=== PATIENT | female | born 1995 | race Caucasian/White ===

== ENCOUNTER 2018-08-22 22:19 | Emergency (ER) | payer OTHER ==
[~2018-08-22] VITALS: Ht 160 cm; Wt 84.4 kg
[2018-08-23 00:05] VITALS: BP 125/61
== END 2018-08-23 00:05 | disposition home or self-care (01) ==
LOC: ED 22:19
DX: J02.9 Acute pharyngitis, unspecified (principal); H66.92 Otitis media, unspecified, left ear

== ENCOUNTER 2019-03-20 17:26 | Emergency (ER) | payer MEDICAID ==
[~2019-03-20] VITALS: Ht 162.6 cm; Wt 85.7 kg
[2019-03-20 17:40] VITALS: Ht 162.6 cm; Wt 85.7 kg
[2019-03-20 19:13] VITALS: BP 118/67
== END 2019-03-20 19:13 | disposition home or self-care (01) ==
LOC: ED 17:26
DX: O26.891 Other specified pregnancy related conditions, first trimester (principal); R19.7 Diarrhea, unspecified; Z3A.01 Less than 8 weeks gestation of pregnancy

== ENCOUNTER 2019-03-25 15:35 | Emergency (ER) | payer MEDICAID ==
[~2019-03-25] VITALS: Ht 162.6 cm; Wt 81.6 kg
[2019-03-25 15:44] VITALS: Ht 162.6 cm; Wt 81.6 kg
[2019-03-25 17:49] LABS: BASOPHIL % 0.1 % (0-2); PLATELET COUNT 308 x10^3mcL (130-400)
[2019-03-25 17:51] LABS: RED CELL DISTRIBUTION WIDTH 14.7 % (11.5-14.5)
[2019-03-25 19:06] LABS: microscopic required? YES; urine erythrocyte TRACE (NEGATIVE)
[2019-03-25 20:05] VITALS: BP 116/67
== END 2019-03-25 20:05 | disposition home or self-care (01) ==
LOC: ED 15:35
PROVIDERS: Emergency Medicine
DX: O99.511 Diseases of the respiratory system complicating pregnancy, first trimester (principal); Z3A.01 Less than 8 weeks gestation of pregnancy
CPT/HCPCS: 36415; 87804; Q0162